=== PATIENT | male | born 1985 | race Caucasian/White ===

== ENCOUNTER 2017-12-18 11:39 | Emergency (ER) | payer SELFPAY ==
--- NOTE | 2017-12-18 13:14 | EDPHY ---
H & P Stated Complaint: inflammed lymph nodes L groin. Pain to R lung (hx lung abscess ) Time Seen by Provider: 12/18/17 12:55 HPI/ROS: CHIEF COMPLAINT: Lower abdominal pain HISTORY OF PRESENT ILLNESS: 32-year-old male presents with lower abdominal pain. Onset of swelling and tenderness in the left groin yesterday. Gradually increasing pain and swelling since yesterday. Also has occasional shortness of breath at night since arriving to [facility]. [place]. 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 No IVDA for 5 years. No dysuria or urethral discharge. No history of STD or recent cat bite or travel. REVIEW OF SYSTEMS: complete 10 point ROS reviewed and is negative except for the noted elements in the HPI - Personal History Current Tetanus/Diphtheria Vaccine: Unsure Current Tetanus Diphtheria and Acellular Pertussis (TDAP): Unsure - Medical/Surgical History Hx Asthma: No Hx Chronic Respiratory Disease: No Hx Diabetes: No Hx Cardiac Disease: No Hx Renal Disease: No Hx Cirrhosis: No Hx Alcoholism: No Hx HIV/AIDS: No Hx Splenectomy or Spleen Trauma: No Other PMH: Spinal fusion T11, 12, L1, collar bone fusion, R orbital fusion-all related to traumatic injuries from skydiving. 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 - Social History Smoking Status: Never smoked Alcohol Use: Rarely Drug Use: Marijuana Additional Social History: Traveling from [place] - Physical Exam Exam: General Appearance: Alert, pleasant Eyes: Pupils equal and round, conjunctival injection ENT, Mouth: Mucous membranes moist Neck: Normal inspection Respiratory: Lungs are clear to auscultation Cardiovascular: Regular rate and rhythm Gastrointestinal: Abdomen is soft, left lower quadrant tenderness, shotty adenopathy in the left groin Genitourinary: Normal inspection, no urethral discharge, no testicular tenderness or swelling Neurological: A&O, nonfocal, normal gait Skin: Warm and dry, no rash in groin or lower extremities Extremities: Normal inspection Psychiatric: Mood and affect normal Constitutional: Initial Vital Signs Temperature (C) 37.5 C 12/18/17 11:42 Heart Rate 85 12/18/17 11:42 Respiratory Rate 16 12/18/17 11:42 Blood Pressure 110/69 12/18/17 11:42 O2 Sat (%) 95 12/18/17 11:42 O2 Delivery Mode Room Air Allergies/Adverse Reactions: No Known Allergies Allergy (Verified 12/18/17 11:49) Home Medications: Medication Instructions Recorded Buprenorphine 12/18/17 Doxycycline Hyclate 100 mg PO BID #20 tablet 12/18/17 Medical Decision Making - Diagnostics Imaging Results: Imaging Impressions Abdomen CT 12/18/17 13:10 Impression: 1. Left inguinal and scattered mesenteric adenopathy, possibly infectious or inflammatory given elevated white count. However, an underlying neoplasm such as lymphoma cannot be excluded and would recommend short-term follow-up imaging to ensure resolution. If lymph nodes do not improve, particularly in the left inguinal region, a percutaneous biopsy should be obtained. 2. Mild extra and intrahepatic ductal dilatation. Recommend correlation with LFTs. If abnormal, MRCP or ERCP evaluation would be recommended. Findings and recommendations discussed with SILVERIO MARSHALL at 1431 hour, 2017. Chest X-Ray 12/18/17 13:10 Impression: There is no acute intrathoracic abnormality. Imaging: Discussed imaging studies w/ banquet server on call Radiologist ED Course/Re-evaluation: This patient presents with left lower quadrant tenderness and left inguinal adenopathy. The remainder of the genitourinary exam is normal, without urethral discharge or lesions. CT scan of the abdomen pelvis ordered because of left lower quadrant tenderness. CT scan reveals inquinal lymphadenopathy, which appears infectious, according to the radiologist; no evidence of colitis or diverticulitis. I will treat this patient for possible STD with Rocephin and doxycycline. I encouraged him to follow up in 2 days with a PCP for follow- up, including follow up on urine STD testing. Understand if adenopathy persists , will need f/u and possible biopsy. CXR NAD, d/w pt, no respiratory symptoms and not hypoxic or tachypneic. Reassured no recurrent abscess/infection. 1930: I called this pt after the final CT report available. Told pt of intraabd adenopathy. Aware and will f/u. Differential Diagnosis: Differential diagnosis includes though it is not limited to appendicitis, cholecystitis, diverticulitis, pyelonephritis, bowel perforation, small bowel obstruction. - Data Points Laboratory Results: Laboratory Results 12/18/17 13:29 12/18/17 13:29 12/18/17 12/18/17 12/18/17 14:30 14:30 13:33 WBC RBC Hgb POC Hgb 14.6 gm/dL gm/dL (13.7-17.5) Hct POC Hct 43 % % (40-51) MCV MCH MCHC RDW Plt Count MPV Neut % (Auto) Lymph % (Auto) [place] % (Auto) Eos % (Auto) Baso % (Auto) Nucleat RBC Rel Count Absolute Neuts (auto) Absolute Lymphs (auto) Absolute Monos (auto) Absolute Eos (auto) Absolute Basos (auto) Absolute Nucleated RBC Immature Gran % Immature Gran # POC Sodium 138 mEq/L mEq/L (135-145) Sodium POC Potassium 3.5 mEq/L mEq/L (3.3-5.0) Potassium POC Chloride 97 mEq/L mEq/L (97-110) Chloride Carbon Dioxide Anion Gap POC BUN 9 mg/dL mg/dL (7-23) BUN Creatinine POC Creatinine 0.8 mg/dL mg/dL (0.7-1.3) Estimated GFR Glucose POC Glucose 87 mg/dL mg/dL (70-100) Calcium Total Bilirubin Conjugated Bilirubin Unconjugated Bilirubin AST ALT Alkaline Phosphatase Total Protein Albumin Urine Color PALE YELLOW Urine Appearance CLEAR Urine pH 7.0 (5.0-7.5) Ur Specific [place] 1.003 (1.002-1.030) Urine Protein NEGATIVE (NEGATIVE) Urine Ketones NEGATIVE (NEGATIVE) Urine Blood NEGATIVE (NEGATIVE) Urine Nitrate NEGATIVE (NEGATIVE) Urine Bilirubin NEGATIVE (NEGATIVE) Urine Urobilinogen NEGATIVE EU EU (0.2-1.0) Ur Leukocyte Esterase NEGATIVE (NEGATIVE) Urine Glucose NEGATIVE (NEGATIVE) C.trachomatis RNA (TMA) Pending N.gonorrhoeae RNA (TMA) Pending 12/18/17 12/18/17 12/18/17 13:29 13:29 13:29 WBC 9.57 10^3/uL H 10^3/uL (3.80-9.50) RBC 5.06 10^6/uL 10^6/uL (4.40-6.38) Hgb 13.8 g/dL g/dL (13.7-17.5) POC Hgb Hct 41.3 % % (40.0-51.0) POC Hct MCV 81.6 fL fL (81.5-99.8) MCH 27.3 pg L pg (27.9-34.1) MCHC 33.4 g/dL g/dL (32.4-36.7) RDW 13.4 % % (11.5-15.2) Plt Count 299 10^3/uL 10^3/uL (150-400) MPV 10.0 fL fL (8.7-11.7) Neut % (Auto) 81.9 % H % (39.3-74.2) Lymph % (Auto) 9.3 % L % (15.0-45.0) [place] % (Auto) 8.3 % % (4.5-13.0) Eos % (Auto) 0.1 % L % (0.6-7.6) Baso % (Auto) 0.2 % L % (0.3-1.7) Nucleat RBC Rel Count 0.0 % % (0.0-0.2) Absolute Neuts (auto) 7.84 10^3/uL H 10^3/uL (1.70-6.50) Absolute Lymphs (auto) 0.89 10^3/uL L 10^3/uL (1.00-3.00) Absolute Monos (auto) 0.79 10^3/uL 10^3/uL (0.30-0.80) Absolute Eos (auto) 0.01 10^3/uL L 10^3/uL (0.03-0.40) Absolute Basos (auto) 0.02 10^3/uL 10^3/uL (0.02-0.10) Absolute Nucleated RBC 0.00 10^3/uL 10^3/uL (0-0.01) Immature Gran % 0.2 % % (0.0-1.1) Immature Gran # 0.02 10^3/uL 10^3/uL (0.00-0.10) POC Sodium Sodium 136 mEq/L mEq/L (135-145) POC Potassium Potassium 3.8 mEq/L mEq/L (3.3-5.0) POC Chloride Chloride 98 mEq/L mEq/L (97-110) Carbon Dioxide 27 mEq/l mEq/l (22-31) Anion Gap 11 mEq/L mEq/L (8-16) POC BUN BUN 11 mg/dL mg/dL (7-23) Creatinine 0.8 mg/dL mg/dL (0.7-1.3) POC Creatinine Estimated GFR > 60 Glucose 80 mg/dL mg/dL (70-100) POC Glucose Calcium 9.4 mg/dL mg/dL (8.5-10.4) Total Bilirubin 0.9 mg/dL mg/dL (0.1-1.4) Conjugated Bilirubin 0.2 mg/dL mg/dL (0.0-0.5) Unconjugated Bilirubin 0.7 mg/dL mg/dL (0.0-1.1) AST 54 IU/L IU/L (17-59) ALT 48 IU/L IU/L (21-72) Alkaline Phosphatase 84 IU/L IU/L (38-126) Total Protein 7.4 g/dL g/dL (6.3-8.2) Albumin 4.5 g/dL g/dL (3.5-5.0) Urine Color Urine Appearance Urine pH Ur Specific [place] Urine Protein Urine Ketones Urine Blood Urine Nitrate Urine Bilirubin Urine Urobilinogen Ur Leukocyte Esterase Urine Glucose C.trachomatis RNA (TMA) N.gonorrhoeae RNA (TMA) Medications Given: Discontinued Medications Ceftriaxone Sodium (Rocephin Im Syringe) 250 mg IM EDNOW ONE PRN Reason: Protocol Stop: 12/18/17 14:34 Last Admin: 12/18/17 15:05 Dose: 250 mg Point of Care Test Results: Chemistry 12/18/17 13:33 POC Sodium 138 mEq/L mEq/L (135-145) POC Potassium 3.5 mEq/L mEq/L (3.3-5.0) POC Chloride 97 mEq/L mEq/L (97-110) POC BUN 9 mg/dL mg/dL (7-23) POC Creatinine 0.8 mg/dL mg/dL (0.7-1.3) POC Glucose 87 mg/dL mg/dL (70-100) ISTAT H&H 12/18/17 13:33 POC Hgb 14.6 gm/dL gm/dL (13.7-17.5) POC Hct 43 % % (40-51) Departure - Departure Disposition: Home, Routine, Self-Care Clinical Impression: Inguinal lymphadenopathy Condition: Good Instructions: Lymphadenopathy (ED) Additional Instructions: Ibuprofen 600 mg 3 times daily while the pain persists. Take antibiotics as prescribed. If the swollen lymph nodes persists, you may need to have a biopsy. Please follow-up in 7-10 days if you have persistent symptoms. Return for worsening symptoms or any concerns. Referrals: Neena Terrazas MD [Medical Doctor] - 2-3 days, call for appt. Prescriptions: Doxycycline Hyclate 100 mg PO BID #20 tablet
[2017-12-18] MEDS ORDERED: IOPAMIDOL (ISOVUE-300) 100 ML BTL ONE (13:42)
[2017-12-18 13:55] LABS: PLATELET COUNT 299 10^3/uL (150-400)
[2017-12-18 15:08] VITALS: BP 115/76
[2017-12-19 11:31] LABS: GC AMPLIFICATION GENPROBE NEGATIVE (NEGATIVE)
== END 2017-12-18 15:18 | disposition home or self-care (01) ==
DX: R59.0 Localized enlarged lymph nodes (principal)
CPT/HCPCS: 82435-PO; 82565-PO; 82947-PO; 84132-PO; 84295-PO; 84520-PO; 85014-PO; J0696; Q9967